=== PATIENT | female | born 1990 | race Caucasian/White ===

== ENCOUNTER 2016-09-29 01:16 | Emergency (ER) | payer SELFPAY ==
[~2016-09-29] VITALS: Ht 165.1 cm; Wt 86.5 kg
[2016-09-29] MEDS ORDERED: ACETAMINOPHEN 325 MG TABLET ONE (01:53)
[2016-09-29] MEDS ORDERED: DEXAMETHASONE 4 MG/ML, 1ML ONE (01:53)
[2016-09-29] MEDS ORDERED: DEXAMETHASONE 4 MG/ML, 1ML IM ONE (02:00)
[2016-09-29] MEDS ORDERED: ACETAMINOPHEN 325 MG TABLET PO ONE (02:00)
[2016-09-29 02:41] VITALS: BP 104/54
== END 2016-09-29 02:43 | disposition home or self-care (01) ==
LOC: ED 02:30
DX: J20.8 Acute bronchitis due to other specified organisms (principal); K12.0 Recurrent oral aphthae
CPT/HCPCS: 71020; 93005; 96372; 99284; J1100